=== PATIENT | female | born 1990 | race Caucasian/White ===

== ENCOUNTER 2020-07-22 13:27 | Outpatient (REF) | payer MEDICARE, SELFPAY ==
[2020-07-22 13:52] LABS: MANUAL DIFF FLAG NO
[2020-07-22 13:56] LABS: Basophils Percent Auto 0.2 % (0-2); Eosinophils Absolute Auto 0.3 X10*3/uL (0.0-0.4); Hematocrit 41.2 % (37-47); Hemoglobin 13.2 g/dl (12.0-16.0); Imm Gran Abs Auto 0.01 X10*3/uL (0.00-0.03); Imm Gran Pct Auto 0.2 % (0.0-0.4); Lymphocytes Absolute Auto 1.7 X10*3/uL (1.2-4.9); Lymphocytes Percent Auto 35.3 % (20-40); Mean Corpuscular Volume 93.6 fL (80-98); Mean Platelet Volume 10.6 fL (9.4-12.3); Monocytes Absolute Auto 0.4 X10*3/uL (0.1-1.2); Monocytes Percent Auto 8.9 % (2-11); Neutrophils Absolute Auto 2.4 X10*3/uL (2.0-8.3); Neutrophils Percent Auto 48.4 % (45-73); Platelet Count 189 X10*3/uL (160-400); Red Cell Distribution Width 12.2 % (11.0-16.0); White Blood Count 4.9 X10*3/uL (4.8-10.8)
[2020-07-22 14:28] LABS: Alanine Aminotransferase 18 U/L (0-31); Albumin Level 4.4 g/dL (3.5-5.0); Alkaline Phosphatase 57 U/L (39-117); Anion Gap 11 (12-20); Aspartate Amino Transferase 19 U/L (5-31); Bilirubin Total 0.3 mg/dL (0.0-1.0); Blood Urea Nitrogen 17 mg/dL (9-16); Calcium 9.3 mg/dL (8.4-10.2); Carbon Dioxide 29 mmol/L (22-29); Chloride 104 mmol/L (96-108); Estimated Glomerular Filt Rate > 60; Glucose Random 92 mg/dL (60-115); Potassium 4.3 mmol/l (3.3-5.1); Sodium 140 mmol/L (135-145)
== END 2020-07-22 13:28 | disposition home or self-care (01) ==
LOC: HO.LAB 13:27
PROVIDERS: PCP Internal Medicine; Visit Provider Family Medicine
DX: Z79.899 Other long term (current) drug therapy (principal)
CPT/HCPCS: 36415; 80053; 85025

== ENCOUNTER 2020-09-19 08:01 | Outpatient (REF) | payer MEDICARE, SELFPAY ==
[2020-09-19 10:07] LABS: Free T4 (Free Thyroxine) 0.99 ng/dL (0.71-1.85); Thyroid Stimulating Hormone 3.06 uIU/mL (0.32-4.0)
[2020-09-20 04:17] LABS: Triiodothyronine T3 Free 2.8 pg/mL (2.3-4.2)
== END 2020-09-19 08:02 | disposition home or self-care (01) ==
LOC: HO.LAB 08:01
PROVIDERS: PCP Internal Medicine; Visit Provider Family Medicine
DX: E03.8 Other specified hypothyroidism (principal)
CPT/HCPCS: 36415; 84439; 84443; 84481

== ENCOUNTER 2020-10-13 12:09 | Outpatient (REF) | payer MEDICARE, SELFPAY | END 2020-10-13 12:10 | disposition home or self-care (01) | LOC: HO.LAB 12:09 | PROVIDERS: PCP Internal Medicine; Visit Provider Family Medicine | DX: B99.9 Unspecified infectious disease (principal); R65.10 Systemic inflammatory response syndrome (SIRS) of non-infectious origin without acute organ dysfunction | CPT/HCPCS: 36415; 83520 ==

== ENCOUNTER 2021-03-17 10:56 | Outpatient (REF) | payer MEDICARE, SELFPAY ==
[2021-03-17 11:49] LABS: MANUAL DIFF FLAG NO
[2021-03-17 12:03] LABS: Basophils Percent Auto 0.4 % (0-2); Eosinophils Absolute Auto 0.3 X10*3/uL (0.0-0.4); Hematocrit 41.6 % (37-47); Hemoglobin 13.7 g/dl (12.0-16.0); Imm Gran Abs Auto 0.01 X10*3/uL (0.00-0.03); Imm Gran Pct Auto 0.2 % (0.0-0.4); Lymphocytes Absolute Auto 1.8 X10*3/uL (1.2-4.9); Lymphocytes Percent Auto 33.1 % (20-40); Mean Corpuscular HGB Conc 32.9 g/dl (31.0-35.0); Mean Corpuscular Hemoglobin 30.4 pg (27.0-33.0); Mean Corpuscular Volume 92.4 fL (80-98); Monocytes Absolute Auto 0.5 X10*3/uL (0.1-1.2); Monocytes Percent Auto 8.8 % (2-11); Neutrophils Absolute Auto 2.9 X10*3/uL (2.0-8.3); Neutrophils Percent Auto 52.5 % (45-73); Platelet Count 203 X10*3/uL (160-400); White Blood Count 5.4 X10*3/uL (4.8-10.8)
[2021-03-17 12:09] LABS: Alanine Aminotransferase 12 U/L (0-31); Albumin Level 4.6 g/dL (3.5-5.0); Alkaline Phosphatase 55 U/L (39-117); Anion Gap 10 (12-20); Aspartate Amino Transferase 19 U/L (5-31); Bilirubin Total 0.7 mg/dL (0.0-1.0); Blood Urea Nitrogen 15 mg/dL (9-16); Calcium 10.1 mg/dL (8.4-10.2); Carbon Dioxide 28 mmol/L (22-29); Chloride 106 mmol/L (96-108); Estimated Glomerular Filt Rate > 60; Glucose Random 91 mg/dL (60-115); Potassium 4.7 mmol/L (3.3-5.1); Sodium 139 mmol/L (135-145); Total Protein 7.1 g/dL (6.5-8.0)
== END 2021-03-17 10:57 | disposition home or self-care (01) ==
LOC: HO.LABR 10:56
PROVIDERS: PCP Internal Medicine; Visit Provider Family Medicine
DX: Z79.899 Other long term (current) drug therapy (principal)
CPT/HCPCS: 36415; 80053; 85025

== ENCOUNTER 2021-11-27 08:07 | Outpatient (REF) | payer MEDICARE, SELFPAY ==
[2021-11-27 09:16] LABS: Free T4 (Free Thyroxine) 1.43 ng/dL (0.71-1.85)
[2021-12-02 10:12] LABS: Triiodothyronine T3 Reverse 11 ng/dL (8-25)
[2021-12-05 23:42] LABS: Histamine Plasma <1.5 ng/mL (< OR = 1.8)
== END 2021-11-27 08:08 | disposition home or self-care (01) ==
LOC: HO.LAB 08:07
PROVIDERS: Visit Provider Family Medicine
DX: D89.49 Other mast cell activation disorder (principal); Z79.2 Long term (current) use of antibiotics
CPT/HCPCS: 36415; 83088; 83520; 84439; 84443; 84481; 84482

== ENCOUNTER 2021-12-07 09:24 | Outpatient (REF) | payer MEDICARE, SELFPAY ==
[2021-12-11 18:16] LABS: Testosterone, Free 1.4 pg/mL (0.1-6.4); Testosterone, Total 17 ng/dL (2-45)
[2021-12-11 19:17] LABS: Progesterone 19.7 ng/mL
[2021-12-12 04:27] LABS: Estradiol Free 1.56 pg/mL; Estradiol, Ultrasensitive 113 pg/mL
== END 2021-12-07 09:25 | disposition home or self-care (01) ==
LOC: HO.LAB 09:24
PROVIDERS: Visit Provider Family Medicine
DX: N94.5 Secondary dysmenorrhea (principal)
CPT/HCPCS: 36415; 82670; 82681; 84144; 84402; 84403